=== PATIENT | female | born 1975 | race African-American/Black ===

== ENCOUNTER 2023-12-23 19:12 | Emergency (ER) | payer BC ==
[~2023-12-23] VITALS: Ht 157.5 cm; Wt 65.8 kg
[2023-12-23 19:32] VITALS: BP 144/84; TEMP 98
[2023-12-23 20:18] VITALS: O2SAT 100
== END 2023-12-23 20:19 | disposition home or self-care (01) ==
LOC: ER 19:18
DX: T19.2XXA Foreign body in vulva and vagina, initial encounter (principal); Z60.2 Problems related to living alone; W44.8XXA Other foreign body entering into or through a natural orifice, initial encounter